=== PATIENT | female | born 1930 | race Caucasian/White ===

== ENCOUNTER 2018-07-04 14:11 | Inpatient (IN) ==
--- NOTE | 2018-07-04 14:56 | Internal Med History&Physical ---
Date of Encounter: 07/04/18 Time of Encounter: 14:53 Assessment and Plan (1) Closed fracture of proximal end of left femur Current visit: Yes Status: Acute Patient is an admission this facility for rehabilitation due to surgical intervention of a total hip replacement to her left hip following a fall at home. Patient's left hip surgical incision remains dry and intact with no erythema and minimal ecchymosis noted. Minimal edema noted left hip. Distal CV checks within normal limits. Patient states that her pain is well tolerated with current pain medications. Physical therapy evaluation pending. We will continue with current plan of care. Qualifiers: Encounter type: initial encounter Qualified Code(s): S72.002A - Fracture of unspecified part of neck of left femur, initial encounter for closed fracture (2) Diabetes Current visit: Yes Status: Chronic No acute issues. Patient continues on oral diabetic medication. We will obtain fingersticks before meals twice a day to monitor patient's blood sugars for the next several days. Qualifiers: Diabetes mellitus type: type 2 Diabetes mellitus group home insulin use: without group home use Diabetes mellitus complication status: with unspecified complications Qualified Code(s): E11.8 - Type 2 diabetes mellitus with unspecified complications (3) History of hypertension Current visit: No Status: Chronic Vital signs are stable. We will continue with current medications. (4) CHF (congestive heart failure) Current visit: Yes Status: Chronic No acute issues. Lungs are clear. Patient denies dyspnea. Denies any chest discomforts or palpitations. We will continue with current medications. Qualifiers: Heart failure type: unspecified Heart failure chronicity: unspecified Qualified Code(s): I50.9 - Heart failure, unspecified Internal Medicine - H&P: HPI Chief complaint: left total hip replacement Admitted From: Hospital to Hospital Transfer Plans for Post Hospital Care: Home History of present illness: Ms. Leon is a 88 year old female, who was admitted this facility for rehabilitation due to deconditioning secondary to a fall, resulting in a left hip fracture requiring surgical intervention. Patient had a left total hip replacement & medical records had an uneventful recovery while at the hospital. Patient was transferred to this facility for further physical therapy. Patient currently denies any discomforts or shortness of breath. Patient states that she has already been ambulating on her left hip as and has been tolerating that well. Patient denies any shortness of breath or chest discomforts. Denies any other issues. Past Med Surg Social Fam HX - Past Medical History Medical history: arthritis, CHF, COPD, diabetes, hyperlipidemia, hypertension Psychiatric history: anxiety, depression - Past Surgical History Surgical History: hysterectomy - Social History Smoking Status: Never smoker Smokeless Tobacco Status: No Alcohol use: none Drug use: none - Family History Mother Hx Family Cardiac Disorders: Yes Father Hx Family Endocrine Disorder: Yes Internal Medicine - H&P: Meds Alendronate Sodium [Fosamax] 35 mg PO QWEEK 07/01/18 [History] Alendronate Sodium [Fosamax] 35 mg PO QWEEK 07/01/18 [History] Amlodipine Besylate 10 mg PO DAILY 07/01/18 [History] Atorvastatin [Lipitor] 20 mg PO HS 07/01/18 [History] Cholecalciferol (D-3) [Vitamin D] 1,000 unit PO DAILY 07/01/18 [History] Furosemide [Lasix] 20 mg PO DAILY 07/01/18 [History] Metformin HCl [Glucophage] 1,000 mg PO DAILY 07/01/18 [History] Metoprolol [Lopressor] 50 mg PO BID 07/01/18 [History] Ranitidine HCl [Heartburn Relief] 150 mg PO BID 07/01/18 [History] Spironolactone [Aldactone] 25 mg PO DAILY 07/01/18 [History] Aspirin 325 mg PO BID 30 Days #60 tablet 07/04/18 [Rx] OxyCODONE/APAP 5/325 [Percocet 5/325 MG] 1 each PO Q6HR PRN 2 Days #8 tablet 07/04/18 [Rx] Allergy/AdvReac Type Severity Reaction Status Date / Time No Known Allergies Allergy Verified 06/30/18 17:26 All Systems PM: A 10-system review of systems was performed and is negative for pertinent findings except as documented above in the HPI. - Constitutional Constitutional: no chills, no fever(s), no night sweats - EENT Eyes: no change in vision, no discharge, no pain, no photophobia Ears: no ear discharge, no ear pain, no tinnitus Nose, mouth and throat: no dysphagia, no nasal discharge, no neck pain, no sore throat - Cardiovascular Cardiovascular ROS IM: as per HPI, no chest pain, no diaphoresis, no dyspnea, no lightheadedness, no palpitations, no syncope - Respiratory Respiratory: as per HPI, no cough, no dyspnea, no wheezing, no excessive phlegm production - Gastrointestinal Gastrointestinal: as per HPI, no abdominal pain, no diarrhea, no hematemesis, no hematochezia, no melena, no nausea, no vomiting - Genitourinary Genitourinary: no change in urinary stream, no dysuria, no flank pain, no hematuria - Musculoskeletal Musculoskeletal ROS IM: no numbness, no tingling - Integumentary Integumentary IM: no rash, no unusual bruising - Neurological Neurological ROS: no confusion, no convulsions, no focal weakness, no numbness, no tingling, no tremor(s) - Hematologic/Lymphatic Hematologic/Lymphatic: no easy bruising - Constitutional Vitals: Temp Pulse Resp BP Pulse Ox 98.3 F 88 16 124/54 93 07/04/18 14:34 07/04/18 14:34 07/04/18 14:34 07/04/18 14:34 07/04/18 14:34 General appearance: Present: A&O X 3, pleasant - Head Head exam: Present: atraumatic, normocephalic - Eye Eye exam: Present: PERRL, conjuntiva pink, sclera anicteric Pupils: Present: PERRL - Neck Neck exam general surgery: Present: supple, trachea midline. Absent: lymphadenopathy - Respiratory Respiratory exam: Present: CTAB. Absent: accessory muscle use, rales, rhonchi, wheezes - Cardiovascular Cardiovascular exam: Present: RRR, +S1, +S2. Absent: diastolic murmur, gallop, rubs, systolic murmur - GI/Abdominal GI/Abdominal exam: Present: normal bowel sounds, soft, no peritoneal signs. Absent: distended, tenderness - Extremities Exam Extremities exam: Present: warm, radial pulses palpable and symmetrical. Absent: calf tenderness, cyanotic, pedal edema Additional comments: Left hip surgical incision remains dry and intact with no erythema noted. Minimal ecchymosis noted surrounding hip. Minimal edema noted to left hip. Distal CV checks within normal limits - Neurological Exam Neurological exam: Present: CN II-XII intact, oriented X3, no focal deficits. Absent: pronater drift, facial droop, speech deficit - Skin Skin exam: Present: dry, intact
[2018-07-04] MEDS ORDERED: *HR* OxyCODONE/APAP 5/325 TABLET PO PRN (15:11)
[2018-07-04] MEDS ORDERED: NON-FORMULARY MEDICATION 1 EACH EACH (Alendronate Sodium [Fosamax] 35 MG) PO SCH ×2 (15:15)
[2018-07-04] MEDS: Famotidine 20 MG TABLET PO SCH (20:30)
[2018-07-04] MEDS: Aspirin 325 MG TABLET PO SCH (20:30)
[2018-07-05 05:17] LABS: Basophils % 0.5 %; Eosinophils # 0.1 K/mcL (0.0-0.6); Eosinophils % 1.4 %; Hematocrit 28.3 % (35.3-44.9); Immature Granulocytes % 0.5 % (0-4); Lymphocytes # 1.3 K/mcL (0.6-4.6); Lymphocytes % 19.9 %; Mean Corpuscular HGB Conc 31.8 g/dL (31.6-35.5); Mean Corpuscular Hemoglobin 28.5 pg (28.0-33.3); Mean Corpuscular Volume 89.6 fL (83.0-100.0); Mean Platelet Volume 11.3 fL (9.4-12.4); Monocytes # 0.5 K/mcL (0.0-1.3); Monocytes % 7.6 %; Neutrophils # 4.5 K/mcL (1.6-8.9); Platelet Count 255 K/mcL (140-400); Red Blood Count 3.16 M/mcL (3.82-4.97); Red Cell Distribution Width 14.4 % (11.5-14.5); Segmented Neutrophils % 70.1 %
[2018-07-05 05:33] LABS: Alanine Aminotransferase 18 Units/L (7-52); Albumin 3.1 g/dL (3.5-5.7); Alkaline Phosphatase 57 Units/L (34-104); Aspartate Amino Transferase 37 Units/L (13-39); BUN/Creatinine Ratio 29 (6-26); Bilirubin,Total 0.5 mg/dL (0.3-1.0); Blood Urea Nitrogen 18 mg/dL (8-23); Calcium 8.7 mg/dL (8.6-10.3); Carbon Dioxide 26 mEq/L (23-29); Chloride 103 mEq/L (98-107); Globulin 3.1 g/dL (2.4-3.5); Glucose 112 mg/dL (70-105); Osmolality,Calculated 285 (280-300); Potassium 4.3 mEq/L (3.5-5.1); Sodium 136 mEq/L (136-145); Total Protein 6.2 g/dL (6.4-8.9); eGFR For Non-African Americans > 60 (> 60)
[2018-07-05] MEDS: amLODIPine 5 MG TABLET PO SCH (08:25)
[2018-07-05] MEDS: *HR* Metformin 500 MG TABLET PO SCH (08:25)
[2018-07-05] MEDS: Furosemide 20 MG TABLET PO SCH (08:26)
[2018-07-05] MEDS: Spironolactone 25 MG TABLET PO SCH (08:26)
[2018-07-05] MEDS: Famotidine 20 MG TABLET PO SCH ×2 (08:26→21:13)
[2018-07-05] MEDS: Aspirin 325 MG TABLET PO SCH ×2 (08:26→21:12)
[2018-07-05] MEDS: Cholecalciferol (D-3) 1,000 UNIT TABLET PO SCH (08:26)
--- NOTE | 2018-07-05 12:08 | Internal Med Progress Note ---
Addendum entered and electronically signed by Ashley Evans 07/05/18 18:48: I have personally performed a face to face evaluation on this patient. I have reviewed and agree with the care plan. Original Note: Date of Encounter: 07/05/18 Time of Encounter: 12:06 - Assessment and plan (1) Closed fracture of proximal end of left femur Current Visit: Yes Status: Acute Assessment and plan: No acute issues. Patient's surgical incision appears healthy and healing well. Patient progressing well with physical therapy. Pain has been well managed. We will continue with current plan of care Qualifiers: Encounter type: initial encounter Qualified Code(s): S72.002A - Fracture of unspecified part of neck of left femur, initial encounter for closed fracture (2) Diabetes Current Visit: Yes Status: Chronic Assessment and plan: No acute issues. Patient's glucose has been fairly well-controlled with most readings less than 200. We will continue with current medications Qualifiers: Diabetes mellitus type: type 2 Diabetes mellitus moth exterminator insulin use: without moth exterminator use Diabetes mellitus complication status: with unspecified complications Qualified Code(s): E11.8 - Type 2 diabetes mellitus with unspecified complications (3) History of hypertension Current Visit: No Status: Chronic Assessment and plan: Vital signs stable. We will continue with current medications. (4) CHF (congestive heart failure) Current Visit: Yes Status: Chronic Assessment and plan: No acute issues. Lungs are clear throughout. Patient denies any palpitations or chest discomforts. We will continue with current medications. Qualifiers: Heart failure type: unspecified Heart failure chronicity: unspecified Qualified Code(s): I50.9 - Heart failure, unspecified - Time Spent With Patient less than 15 minutes - Subjective Interval history: Patient appears relaxed and currently denies any discomforts or shortness of breath. Patient states that she has had minimal pain to her left hip surgical site. States that physical therapy is progressing well. - Constitutional Vitals: Temp Pulse Resp BP Pulse Ox 97.7 F 78 17 109/58 96 07/05/18 12:00 07/05/18 12:00 07/05/18 12:00 07/05/18 12:00 07/05/18 12:00 General appearance: Present: A&O X 3, pleasant - Head Head exam: Present: atraumatic, normocephalic - Eye Eye exam: Present: PERRL, conjuntiva pink, sclera anicteric Pupils: Present: PERRL - Neck Neck exam general surgery: Present: supple, trachea midline. Absent: lymphadenopathy - Respiratory Respiratory exam: Present: CTAB. Absent: accessory muscle use, rales, rhonchi, wheezes - Cardiovascular Cardiovascular exam: Present: RRR, +S1, +S2. Absent: diastolic murmur, gallop, rubs, systolic murmur - GI/Abdominal GI/Abdominal exam: Present: normal bowel sounds, soft, no peritoneal signs. Absent: distended, tenderness - Extremities Exam Extremities exam: Present: warm, radial pulses palpable and symmetrical. Absent: calf tenderness, cyanotic, pedal edema Additional comments: Left hip surgical incision appears dry and intact with no erythema or ecchymosis noted. No edema noted - Neurological Exam Neurological exam: Present: CN II-XII intact, oriented X3, no focal deficits. Absent: pronater drift, facial droop, speech deficit - Skin Skin exam: Present: dry, intact Internal Medicine: Result - Labs CBC & Chem 7: 07/05/18 04:32 07/05/18 04:32 Labs: Short CBC 07/05/18 Range/Units 04:32 WBC 6.3 (4.3-11.1) K/mcL Hgb 9.0 L (11.5-15.4) g/dL Hct 28.3 L (35.3-44.9) % Plt Count 255 (140-400) K/mcL Neutrophils # 4.5 (1.6-8.9) K/mcL BMP 07/05/18 04:32 Sodium 136 Potassium 4.3 Chloride 103 Carbon Dioxide 26 BUN 18 Creatinine 0.63 Glucose 112 H Calcium 8.7 Liver Function 07/05/18 Range/Units 04:32 Total Bilirubin 0.5 (0.3-1.0) mg/dL AST 37 (13-39) Units/L ALT 18 (7-52) Units/L Alkaline Phosphatase 57 (34-104) Units/L Albumin 3.1 L (3.5-5.7) g/dL Consult Discharge Plan - Plan Referrals: Shannon Yi CNP [Primary Care Provider] -
[2018-07-06] MEDS: Cholecalciferol (D-3) 1,000 UNIT TABLET PO SCH (09:34)
[2018-07-06] MEDS: Furosemide 20 MG TABLET PO SCH (09:34)
[2018-07-06] MEDS: *HR* Metformin 500 MG TABLET PO SCH (09:34)
[2018-07-06] MEDS: Aspirin 325 MG TABLET PO SCH ×2 (09:34→20:51)
[2018-07-06] MEDS: Famotidine 20 MG TABLET PO SCH ×2 (09:34→20:50)
[2018-07-06] MEDS: amLODIPine 5 MG TABLET PO SCH (09:35)
[2018-07-06] MEDS: Spironolactone 25 MG TABLET PO SCH (09:35)
[2018-07-07] MEDS: amLODIPine 5 MG TABLET PO SCH (08:41)
[2018-07-07] MEDS: *HR* Metformin 500 MG TABLET PO SCH (08:41)
[2018-07-07] MEDS: Aspirin 325 MG TABLET PO SCH ×2 (08:41→20:21)
[2018-07-07] MEDS: Spironolactone 25 MG TABLET PO SCH (08:41)
[2018-07-07] MEDS: Furosemide 20 MG TABLET PO SCH (08:42)
[2018-07-07] MEDS: Cholecalciferol (D-3) 1,000 UNIT TABLET PO SCH (08:42)
[2018-07-07] MEDS: Famotidine 20 MG TABLET PO SCH ×2 (08:42→20:23)
--- NOTE | 2018-07-07 13:51 | Internal Med Progress Note ---
Date of Encounter: 07/06/18 Time of Encounter: 13:50 - Subjective Interval history: - Assessment and plan (1) Closed fracture of proximal end of left femur with deconditioning Current Visit: Yes Status: Acute Assessment and plan: Admit for therapy Jul 04 2018. No acute issues. Patient's surgical incision appears healthy and healing well. Patient progressing well with physical therapy. Pain has been well managed. Calcium D check Vit D level. We will continue with current plan of care Qualifiers: Encounter type: initial encounter Qualified Code(s): S72.002A - Fracture of unspecified part of neck of left femur, initial encounter for closed fracture (2) Diabetes Current Visit: Yes Status: Chronic Assessment and plan: No acute issues. Patient's glucose has been fairly well-controlled with most readings less than 200. We will continue with current medications Qualifiers: Diabetes mellitus type: type 2 Diabetes mellitus long term care administrator insulin use: without usp use Diabetes mellitus complication status: with unspecified complications Qualified Code(s): E11.8 - Type 2 diabetes mellitus with unspecified complications (3) History of hypertension Current Visit: No Status: Chronic Assessment and plan: Vital signs stable. We will continue with current medications. (4) CHF (congestive heart failure) Current Visit: Yes Status: Chronic Assessment and plan: No acute issues. No sign of failure. Lungs are clear throughout. Patient denies any palpitations or chest discomforts. We will continue with current medications. Qualifiers: Heart failure type: unspecified Heart failure chronicity: unspecified Qualified Code(s): I50.9 - Heart failure, unspecified - Time Spent With Patient less than 15 minutes - Subjective Interval history: Patient has been doing very well with therapy. denies any discomforts or shortness of breath. Patient states that she has had minimal pain to her left hip surgical site. States that physical therapy is progressing well. - Constitutional Vitals: Temp Pulse Resp BP Pulse Ox 97.7 F 78 17 109/58 96 07/05/18 12:00 07/05/18 12:00 07/05/18 12:00 07/05/18 12:00 07/05/18 12:00 General appearance: Present: A&O X 3, pleasant well groomed - Neck Neck exam general surgery: Present: supple, trachea midline. - Respiratory Respiratory exam: Present: CTAB. Absent: accessory muscle use, rales, rhonchi, wheezes - Cardiovascular Cardiovascular exam: Present: RRR, +S1, +S2. Absent: diastolic murmur - GI/Abdominal GI/Abdominal exam: Present: normal bowel sounds, soft, no rebound - Extremities Exam Extremities exam: Present: warm, radial pulses palpable and symmetrical. Absent: calf tenderness, cyanotic, pedal edema Additional comments: Left hip surgical incision appears dry and intact with no erythema or ecchymosis noted. No edema noted - Neurological Exam Neurological exam: Present: CN II-XII intact, oriented X3, no focal deficits. Absent: pronater drift, facial droop, speech deficit - Skin Skin exam: Present: dry, intact - Constitutional Vitals: Temp Pulse Resp BP Pulse Ox 98.0 F 84 16 107/59 92 07/07/18 07:35 07/07/18 07:35 07/07/18 07:35 07/07/18 07:35 07/07/18 07:35 General appearance: Present: A&O X 3, pleasant Internal Medicine: Result - Labs CBC & Chem 7: 07/05/18 04:32 07/05/18 04:32 Consult Discharge Plan - Plan Referrals: Shannon Yi CNP [Primary Care Provider] -
--- NOTE | 2018-07-07 13:59 | Internal Med Progress Note ---
Date of Encounter: 07/07/18 Time of Encounter: 01:57 - Subjective Interval history: - Assessment and plan (1) Closed fracture of proximal end of left femur with deconditioning Current Visit: Yes Status: Acute Assessment and plan: Admit for therapy Jul 04 2018. No acute issues. Patient's surgical incision appears healthy and healing well. Patient progressing well with physical therapy. Pain has been well managed. add Calcium and continue D check Vit D level. We will continue with current plan of care Qualifiers: Encounter type: initial encounter Qualified Code(s): S72.002A - Fracture of unspecified part of neck of left femur, initial encounter for closed fracture (2) Diabetes Current Visit: Yes Status: Chronic Assessment and plan: No acute issues. Patient's glucose has been fairly well-controlled with most readings less than 200. We will continue with current medications Qualifiers: Diabetes mellitus type: type 2 Diabetes mellitus residential insulin use: [facility] [place] petroleum engineer use Diabetes mellitus complication status: with unspecified complications Qualified Code(s): E11.8 - Type 2 diabetes mellitus with unspecified complications (3) History of hypertension Current Visit: No Status: Chronic Assessment and plan: Vital signs stable. We will continue with current medications. (4) CHF (congestive heart failure) Current Visit: Yes Status: Chronic Assessment and plan: No acute issues. No sign of failure. Lungs are clear throughout. Patient denies any palpitations or chest discomforts. We will continue with current medications. Qualifiers: Heart failure type: unspecified Heart failure chronicity: unspecified Qualified Code(s): I50.9 - Heart failure, unspecified - Time Spent With Patient less than 15 minutes - Subjective Interval history: Patient has been doing very well with therapy. She is sitting up in chair a lot. denies any discomforts or shortness of breath. Patient states that she has had minimal pain to her left hip surgical site. She is progressing well. - Constitutional General appearance: Present: A&O X 3, pleasant well groomed - Neck Neck exam general surgery: Present: supple, trachea midline. - Respiratory Respiratory exam: Present: CTAB. Absent: accessory muscle use, rales, rhonchi, wheezes - Cardiovascular Cardiovascular exam: Present: RRR, +S1, +S2. Absent: diastolic murmur - GI/Abdominal GI/Abdominal exam: Present: normal bowel sounds, soft, no rebound - Extremities Exam Extremities exam: Present: warm, radial pulses palpable and symmetrical. Absent: calf tenderness, cyanotic, pedal edema Additional comments: Left hip surgical incision appears dry and intact with no erythema or ecchymosis noted. No edema noted - Neurological Exam Neurological exam: Present: CN II-XII intact, oriented X3, no focal deficits. Absent: pronater drift, facial droop, speech deficit - Skin Skin exam: Present: dry, intact - Constitutional Vitals: Temp Pulse Resp BP Pulse Ox 98.0 F 84 16 107/59 92 07/07/18 07:35 07/07/18 07:35 07/07/18 07:35 07/07/18 07:35 07/07/18 07:35 General appearance: Present: A&O X 3, pleasant Internal Medicine: Result - Labs CBC & Chem 7: 07/05/18 04:32 07/05/18 04:32 Consult Discharge Plan - Plan Referrals: Shannon Yi CNP [Primary Care Provider] -
[2018-07-08 05:16] LABS: Basophils # 0.1 K/mcL (0.0-0.2); Basophils % 0.6 %; Eosinophils # 0.2 K/mcL (0.0-0.6); Hematocrit 29.5 % (35.3-44.9); Hemoglobin 9.5 g/dL (11.5-15.4); Immature Granulocytes % 0.8 % (0-4); Lymphocytes % 21.5 %; Mean Corpuscular HGB Conc 32.2 g/dL (31.6-35.5); Mean Corpuscular Hemoglobin 28.9 pg (28.0-33.3); Mean Corpuscular Volume 89.7 fL (83.0-100.0); Mean Platelet Volume 10.7 fL (9.4-12.4); Monocytes # 0.8 K/mcL (0.0-1.3); Monocytes % 8.3 %; Neutrophils # 6.1 K/mcL (1.6-8.9); Platelet Count 320 K/mcL (140-400); Red Blood Count 3.29 M/mcL (3.82-4.97); Red Cell Distribution Width 14.4 % (11.5-14.5); Segmented Neutrophils % 66.8 %
[2018-07-08 05:38] LABS: BUN/Creatinine Ratio 31 (6-26); Blood Urea Nitrogen 23 mg/dL (8-23); Calcium 9.8 mg/dL (8.6-10.3); Carbon Dioxide 28 mEq/L (23-29); Chloride 100 mEq/L (98-107); Glucose 118 mg/dL (70-105); Osmolality,Calculated 287 (280-300); Potassium 4.6 mEq/L (3.5-5.1); Sodium 136 mEq/L (136-145); eGFR For Non-African Americans > 60 (> 60)
[2018-07-08] MEDS: Aspirin 325 MG TABLET PO SCH ×2 (08:44→20:17)
[2018-07-08] MEDS: *HR* Metformin 500 MG TABLET PO SCH (08:44)
[2018-07-08] MEDS: Spironolactone 25 MG TABLET PO SCH (08:44)
[2018-07-08] MEDS: amLODIPine 5 MG TABLET PO SCH (08:44)
[2018-07-08] MEDS: Famotidine 20 MG TABLET PO SCH ×2 (08:44→20:18)
[2018-07-08] MEDS: Cholecalciferol (D-3) 1,000 UNIT TABLET PO SCH (08:45)
[2018-07-08] MEDS: Furosemide 20 MG TABLET PO SCH (08:45)
--- NOTE | 2018-07-08 14:24 | Internal Med Progress Note ---
Date of Encounter: 07/08/18 Time of Encounter: 14:22 - Assessment and plan (1) S/p left hip fracture Current Visit: Yes Status: Acute Assessment and plan: Participating well with therapy. Continue PT and OT. Will follow progress. Pain controlled with Percocet. Follow up with ortho as scheduled. (2) Diabetes Current Visit: Yes Status: Chronic Assessment and plan: Controlled with current medication. Monitor fingerstick blood sugar. Will adjust medicines as necessary. Qualifiers: Diabetes mellitus type: type 2 Diabetes mellitus superintendent marine oil terminal insulin use: without penitentiary use Diabetes mellitus complication status: with unspecified complications Qualified Code(s): E11.8 - Type 2 diabetes mellitus with unspecified complications (3) Essential hypertension Current Visit: Yes Status: Acute Assessment and plan: Blood pressure controlled with Norvasc. Monitor - Time Spent With Patient less than 15 minutes - Subjective Interval history: Patient participating well with therapy. Ambulates with contact card assist with FWwalker. States pain is controlled. Follows hip precautions. Patient denies fever, chills, nausea, vomiting or diarrhea. Denies shortness of breath or chest pain. Maintaining appetite and hydration. States last bowel movement was 2 days ago. - Constitutional Vitals: Temp Pulse Resp BP Pulse Ox 98.2 F 71 16 130/70 95 07/08/18 07:40 07/08/18 07:40 07/08/18 07:40 07/08/18 07:40 07/08/18 07:40 General appearance: Present: cooperative, A&O X 3, pleasant, no acute distress, answers questions appropriately - Head Head exam: Present: atraumatic, normocephalic - Eye Eye exam: Present: PERRL, conjuntiva pink, sclera anicteric Pupils: Present: PERRL - Neck Neck exam general surgery: Present: supple, trachea midline. Absent: lymphadenopathy - Respiratory Respiratory exam: Present: CTAB. Absent: accessory muscle use, rales, rhonchi, wheezes - Cardiovascular Cardiovascular exam: Present: RRR, +S1, +S2. Absent: diastolic murmur, gallop, rubs, systolic murmur - GI/Abdominal GI/Abdominal exam: Present: normal bowel sounds, soft, no peritoneal signs. Absent: distended, tenderness - Extremities Exam Extremities exam: Present: warm, radial pulses palpable and symmetrical. Absent: calf tenderness, cyanotic, pedal edema - Incison Comments: Left hip dressing dry and intact. Incision well approximated. No sign of infection. - Neurological Exam Neurological exam: Present: CN II-XII intact, oriented X3, no focal deficits. Absent: pronater drift, facial droop, speech deficit - Skin Skin exam: Present: dry, intact Internal Medicine: Result - Labs CBC & Chem 7: 07/08/18 05:00 07/08/18 05:00 Labs: Short CBC 07/08/18 Range/Units 05:00 WBC 9.1 (4.3-11.1) K/mcL Hgb 9.5 L (11.5-15.4) g/dL Hct 29.5 L (35.3-44.9) % Plt Count 320 (140-400) K/mcL Neutrophils # 6.1 (1.6-8.9) K/mcL BMP 07/08/18 05:00 Sodium 136 Potassium 4.6 Chloride 100 Carbon Dioxide 28 BUN 23 Creatinine 0.75 Glucose 118 H Calcium 9.8 Consult Discharge Plan - Plan Referrals: Shannon Yi RADIO MECHANIC APPRENTICE [Primary Care Provider] -
[2018-07-09] MEDS: amLODIPine 5 MG TABLET PO SCH (08:42)
[2018-07-09] MEDS: Cholecalciferol (D-3) 1,000 UNIT TABLET PO SCH (08:42)
[2018-07-09] MEDS: Spironolactone 25 MG TABLET PO SCH (08:42)
[2018-07-09] MEDS: Aspirin 325 MG TABLET PO SCH ×2 (08:42→21:36)
[2018-07-09] MEDS: *HR* Metformin 500 MG TABLET PO SCH (08:43)
[2018-07-09] MEDS: Famotidine 20 MG TABLET PO SCH ×2 (08:43→21:37)
[2018-07-09] MEDS: Furosemide 20 MG TABLET PO SCH (08:43)
--- NOTE | 2018-07-09 10:19 | Internal Med Progress Note ---
Date of Encounter: 07/09/18 Time of Encounter: 10:17 - Assessment and plan (1) S/p left hip fracture Current Visit: Yes Status: Acute Assessment and plan: Participating well with therapy. Continue PT and OT. Will follow progress. Pain controlled with Percocet. Follow up with ortho as scheduled. (2) Diabetes Current Visit: Yes Status: Chronic Assessment and plan: Controlled with current medication. Monitor fingerstick blood sugar. Will adjust medicines as necessary. Qualifiers: Diabetes mellitus type: type 2 Diabetes mellitus fpc insulin use: without fpc use Diabetes mellitus complication status: with unspecified complications Qualified Code(s): E11.8 - Type 2 diabetes mellitus with unspecified complications (3) Essential hypertension Current Visit: Yes Status: Acute Assessment and plan: Blood pressure controlled with Norvasc. Monitor - Time Spent With Patient less than 15 minutes - Subjective Interval history: Patient participating well with therapy. Ambulates with contact guard assist with FWwalker. States pain is controlled. Follows hip precautions. Patient denies fever, chills, nausea, vomiting or diarrhea. Denies shortness of breath or chest pain. Maintaining appetite and hydration. States last bowel movement was yesterday. - Constitutional Vitals: Temp Pulse Resp BP Pulse Ox 97.8 F 73 16 137/74 94 07/09/18 07:00 07/09/18 07:00 07/09/18 07:00 07/09/18 07:00 07/09/18 07:00 General appearance: Present: cooperative, A&O X 3, pleasant, no acute distress, answers questions appropriately - Head Head exam: Present: atraumatic, normocephalic - Eye Eye exam: Present: PERRL, conjuntiva pink, sclera anicteric Pupils: Present: PERRL - Neck Neck exam general surgery: Present: supple, trachea midline. Absent: lymphadenopathy - Respiratory Respiratory exam: Present: CTAB. Absent: accessory muscle use, rales, rhonchi, wheezes - Cardiovascular Cardiovascular exam: Present: RRR, +S1, +S2. Absent: diastolic murmur, gallop, rubs, systolic murmur - GI/Abdominal GI/Abdominal exam: Present: normal bowel sounds, soft, no peritoneal signs. Absent: distended, tenderness - Extremities Exam Extremities exam: Present: warm, radial pulses palpable and symmetrical. Absent: calf tenderness, cyanotic, pedal edema - Incison Comments: left hip incision well-approximated. no drainage or sign of infection. - Neurological Exam Neurological exam: Present: CN II-XII intact, oriented X3, no focal deficits. Absent: pronater drift, facial droop, speech deficit - Skin Skin exam: Present: dry, intact Internal Medicine: Result - Labs CBC & Chem 7: 07/08/18 05:00 07/08/18 05:00 Consult Discharge Plan - Plan Referrals: Shannon Yi CNP [Primary Care Provider] -
[2018-07-10] MEDS: Aspirin 325 MG TABLET PO SCH ×2 (08:18→20:57)
[2018-07-10] MEDS: amLODIPine 5 MG TABLET PO SCH (08:18)
[2018-07-10] MEDS: *HR* Metformin 500 MG TABLET PO SCH (08:19)
[2018-07-10] MEDS: Famotidine 20 MG TABLET PO SCH ×2 (08:19→20:57)
[2018-07-10] MEDS: Spironolactone 25 MG TABLET PO SCH (08:20)
[2018-07-10] MEDS: Furosemide 20 MG TABLET PO SCH (08:20)
[2018-07-10] MEDS: Cholecalciferol (D-3) 1,000 UNIT TABLET PO SCH (08:20)
--- NOTE | 2018-07-10 13:38 | Internal Med Progress Note ---
Date of Encounter: 07/10/18 Time of Encounter: 13:36 - Assessment and plan (1) S/p left hip fracture Current Visit: Yes Status: Acute Assessment and plan: Participating well with therapy. Continue PT and OT. Will follow progress. Pain controlled with Percocet. Follow up with ortho as scheduled. (2) Diabetes Current Visit: Yes Status: Chronic Assessment and plan: Controlled with current medication. Monitor fingerstick blood sugar. Will adjust medicines as necessary. 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 Monitor - Subjective Interval history: Patient participating well with therapy. Ambulates with contact guard assist with FWwalker. States pain is controlled. Follows hip precautions. Patient denies fever, chills, nausea, vomiting or diarrhea. Denies shortness of breath or chest pain. Maintaining appetite and hydration. States last bowel movement was this morning. Discharging to assisted-living tomorrow. - Constitutional Vitals: Temp Pulse Resp BP Pulse Ox 97.1 F L 69 16 103/66 96 07/10/18 07:00 07/10/18 07:00 07/10/18 07:00 07/10/18 07:00 07/10/18 07:00 General appearance: Present: cooperative, A&O X 3, pleasant, no acute distress, answers questions appropriately - Head Head exam: Present: atraumatic, normocephalic - Eye Eye exam: Present: PERRL, conjuntiva pink, sclera anicteric Pupils: Present: PERRL - Neck Neck exam general surgery: Present: supple, trachea midline. Absent: lymphadenopathy - Respiratory Respiratory exam: Present: CTAB. Absent: accessory muscle use, rales, rhonchi, wheezes - Cardiovascular Cardiovascular exam: Present: RRR, +S1, +S2. Absent: diastolic murmur, gallop, rubs, systolic murmur - GI/Abdominal GI/Abdominal exam: Present: normal bowel sounds, soft, no peritoneal signs. Absent: distended, tenderness - Extremities Exam Extremities exam: Present: warm, radial pulses palpable and symmetrical. Absent: calf tenderness, cyanotic, pedal edema Additional comments: Non-pitting edema to bilateral feet - Neurological Exam Neurological exam: Present: CN II-XII intact, oriented X3, no focal deficits. Absent: pronater drift, facial droop, speech deficit - Skin Skin exam: Present: dry, intact Internal Medicine: Result - Labs CBC & Chem 7: 07/08/18 05:00 07/08/18 05:00 Consult Discharge Plan - Plan Referrals: Kd,Shannon Sloan CNP [Primary Care Provider] -
[2018-07-11 08:03] VITALS: BP 100/63
[2018-07-11] MEDS: Furosemide 20 MG TABLET PO SCH (08:04)
[2018-07-11] MEDS: Cholecalciferol (D-3) 1,000 UNIT TABLET PO SCH (08:04)
[2018-07-11] MEDS: Famotidine 20 MG TABLET PO SCH (08:04)
[2018-07-11] MEDS: *HR* Metformin 500 MG TABLET PO SCH (08:04)
[2018-07-11] MEDS: amLODIPine 5 MG TABLET PO SCH (08:04)
[2018-07-11] MEDS: Spironolactone 25 MG TABLET PO SCH (08:04)
[2018-07-11] MEDS: Aspirin 325 MG TABLET PO SCH (08:05)
--- NOTE | 2018-07-11 12:36 | Discharge Summary ---
Orders not resulted at time of discharge: Pending orders 07/08/18 05:00 Vitamin D 1,25 Dihydroxy AM 0400 Date of Encounter: 07/11/18 Time of Encounter: 12:01 - Discharge Diagnosis (1) Closed fracture of proximal end of left femur Priority: Primary Status: Inactive Qualifiers: Encounter type: initial encounter Qualified Code(s): S72.002A - Fracture of unspecified part of neck of left femur, initial encounter for closed fracture (2) Diabetes Priority: Secondary Status: Chronic Qualifiers: Diabetes mellitus type: type 2 Diabetes mellitus custodial insulin use: without custodial use Diabetes mellitus complication status: with unspecified complications Qualified Code(s): E11.8 - Type 2 diabetes mellitus with unspecified complications (3) History of hypertension Priority: Secondary Status: Chronic (4) CHF (congestive heart failure) Priority: Secondary Status: Chronic Qualifiers: Heart failure type: unspecified Heart failure chronicity: unspecified Qualified Code(s): I50.9 - Heart failure, unspecified Hospital course: Ms. Leon is a 88 year old female, who was admitted this facility for rehabilitation due to deconditioning secondary to a fall, resulting in a left hip fracture requiring surgical intervention. Patient had a left total hip replacement & medical records had an uneventful recovery while at the hospital. Patient was transferred to this facility for further physical therapy. Patient currently denies any discomforts or shortness of breath. Surgical incision remains healthy and healing well. Patient progressed well with PT/OT. Pain has been well controlled with current pain meds. Patient to continue PT a SNF. Continue f/u with PCP and Ortho surgeon. Continue on current home meds. Discharge discussed with: patient Time spent discussing smoking cessation with patient: 3 to 10 minutes - Time Spent with Patient Total time spent providing and/or coordinating discharge services: Less than 30 minutes - Discharge Medications Home Medications: Alendronate Sodium [Fosamax] 35 mg PO QWEEK 07/01/18 [History] Alendronate Sodium [Fosamax] 35 mg PO QWEEK 07/01/18 [History] Amlodipine Besylate 10 mg PO DAILY 07/01/18 [History] Atorvastatin [Lipitor] 20 mg PO HS 07/01/18 [History] Cholecalciferol (D-3) [Vitamin D] 1,000 unit PO DAILY 07/01/18 [History] Furosemide [Lasix] 20 mg PO DAILY 07/01/18 [History] Metformin HCl [Glucophage] 1,000 mg PO DAILY 07/01/18 [History] Metoprolol [Lopressor] 50 mg PO BID 07/01/18 [History] Ranitidine HCl [Heartburn Relief] 150 mg PO BID 07/01/18 [History] Spironolactone [Aldactone] 25 mg PO DAILY 07/01/18 [History] Aspirin 325 mg PO BID 30 Days #60 tablet 07/04/18 [Rx] Allergies/Adverse Reactions: Allergy/AdvReac Type Severity Reaction Status Date / Time No Known Allergies Allergy Verified 06/30/18 17:26 Date of admission: 07/04/18 14:30 Primary care physician: Shannon Yi CNP Consults: 07/04/18 14:57 Consult to Occupational Therapy [CONS] Routine Comment: Evaluate, develop and implement POC Reason for Consult: eval Does patient have active BEDREST order?: No Is patient medically & hemodynamically stable?: Yes Consult to Physical Medicine/Rehab [CONS] Routine Reason for Consult: Please evaluate and manage therapies' guidelines and recommend pathway to reconditioning. Time Notified: 14:58 Call Completed: Yes Consult to Physical Therapy [CONS] Routine Comment: Evaluate, develop and implement POC Reason for Consult: eval Does patient have active BEDREST order?: No Is patient medically & hemodynamically stable?: Yes Consult to Recreational Therapy [CONS] Routine Comment: 07/04/18 17:28 Consult to Nutrition [CONS] Routine Comment: Consulting Provider: NUTRITION Reason for Dietary Consult: PO Supplementation - Constitutional Vitals: Temp Pulse Resp BP Pulse Ox 98.2 F 95 18 100/63 92 07/11/18 08:02 07/11/18 08:02 07/11/18 08:02 07/11/18 08:02 07/11/18 08:02 General appearance: Present: cooperative, A&O X 3, pleasant, no acute distress, answers questions appropriately - Head Head exam: Present: atraumatic, normocephalic - Eye Eye exam: Present: PERRL, conjuntiva pink, sclera anicteric Pupils: Present: PERRL - Neck Neck exam general surgery: Present: supple, trachea midline. Absent: lymphadenopathy - Respiratory Respiratory exam: Present: CTAB. Absent: accessory muscle use, rales, rhonchi, wheezes - Cardiovascular Cardiovascular exam: Present: RRR, +S1, +S2. Absent: diastolic murmur, gallop, rubs, systolic murmur - GI/Abdominal GI/Abdominal exam: Present: normal bowel sounds, soft, no peritoneal signs. Ab sent: distended, tenderness - Extremities Exam Extremities exam: Present: warm, radial pulses palpable and symmetrical. Absent: calf tenderness, cyanotic, pedal edema Additional comments: hip surgical incision remains dry and intact and appears healthy. - Neurological Exam Neurological exam: Present: CN II-XII intact, oriented X3, no focal deficits. Absent: pronater drift, facial droop, speech deficit - Skin Skin exam: Present: dry, intact - Patient Status Disposition: Transfer SNF Condition: Good Functional capacity at discharge: uses cane/walker Overall status at discharge: patient is progressing back to baseline - Discharge Instructions Follow Up With: Shannon Yi GIFT PACKER [Primary Care Provider] - - Diet and Activity Activity: ambulate only with your walker, as per physical therapy, increase activity as tolerated Diet: low salt diet
--- NOTE | 2018-07-11 13:59 | Physician Discharge Referral ---
Home Health/Hosp Referral Info Transfer to: Home Health Provider in Charge Post Discharge: PCP - Diagnosis (1) Closed fracture of proximal end of left femur Priority: Primary Status: Inactive (2) Diabetes Priority: Secondary Status: Chronic (3) History of hypertension Priority: Secondary Status: Chronic (4) CHF (congestive heart failure) Priority: Secondary Status: Chronic - Respiratory Orders Smoking Cessation: Smoking cessation has been advised. For more information, call the [place] Tobacco Quit Line at 4-992-CZJM-NOW. - Diet/Nutrition Diet/Nutrition Orders: No Added Salt (COMFORT) - Activity Activity Orders: Up ad sandoval, Ambulate, Walker - Services Needed Following services are medically necessary services: Physical Therapy - Transfer Medications Home Medications: Alendronate Sodium [Fosamax] 35 mg PO QWEEK 07/01/18 [History] Alendronate Sodium [Fosamax] 35 mg PO QWEEK 07/01/18 [History] Amlodipine Besylate 10 mg PO DAILY 07/01/18 [History] Atorvastatin [Lipitor] 20 mg PO HS 07/01/18 [History] Cholecalciferol (D-3) [Vitamin D] 1,000 unit PO DAILY 07/01/18 [History] Furosemide [Lasix] 20 mg PO DAILY 07/01/18 [History] Metformin HCl [Glucophage] 1,000 mg PO DAILY 07/01/18 [History] Metoprolol [Lopressor] 50 mg PO BID 07/01/18 [History] Ranitidine HCl [Heartburn Relief] 150 mg PO BID 07/01/18 [History] Spironolactone [Aldactone] 25 mg PO DAILY 07/01/18 [History] Aspirin 325 mg PO BID 30 Days #60 tablet 07/04/18 [Rx] Allergies/Adverse Reactions: Allergy/AdvReac Type Severity Reaction Status Date / Time No Known Allergies Allergy Verified 06/30/18 17:26 Certification: Further, I certify that my clinical findings support that this patient is homebound (i.e. absences from home require considerable and taxing effort and are for medical reasons or shinto services or infrequently or short duration when for other reasons) because: Homebound Reason: Post-surgery restriction and or conditions limit ability to leave home, Leaving home requires considerable and taxing effort due to condition Attestation: My signature below is to certify that this patient is under my care and that I, or nurse practitioner, or a physician's statistical assistant working with me, has a [id number] encounter with this patient.
== END 2018-07-11 16:12 | DRG 561 ==
LOC: INPGRE 14:30